=== PATIENT | female | born 1995 | race Hispanic/Latino ===

== ENCOUNTER 2017-05-28 08:05 | Outpatient (CLI) | payer OTHER ==
--- NOTE | 2017-05-28 08:56 | ULT ---
TRANSABDOMINAL TRANSVAGINAL PELVIC ULTRASOUND: INDICATION: Generalized abdominal and pelvic pain. TECHNIQUE: Molina scale, color Doppler and vascular duplex with spectral analysis was performed of the pelvis via transabdominal and transvaginal approach. FINDINGS: The uterus measures 6.5 x 3.3 x 3.6 cm. Endometrial stripe measures 3 mm. The right ovary measures 3.2 x 2 x 2.1 cm. The left ovary measures 2.3 x 1.6 x 1.6 cm. There is nor mal flow to both ovaries. No free fluid is evident. There are mild follicles seen within both ovari es. The largest is seen on the right measuring up to 1.8 cm. IMPRESSION: No acute sonographic abnormality within the pelvis. POS: [facility]
--- NOTE | 2017-05-28 09:01 | ULT ---
COMPLETE ABDOMEN ULTRASOUND: INDICATION: Abdominal pain. COMPARISON: None. FINDINGS: Visualized abdominal aorta and IVC were within normal limits. The liver demonstrated no focal hepatic lesion. The spleen is mildly enlarged measuring 13.2 cm. The gallbladder was normal-appearing. No sonographic Mercedes's sign was reported. The common bile du ct measured 4 mm. Visualized aspects of the pancreas are unremarkable. No focal renal lesion or hydronephrosis is evident. The right kidney measures 9.7 x 3.8 x 5.1 cm. T he left kidney measured 10.1 x 4.7 x 4.7 cm. IMPRESSION: Mild splenomegaly. POS: [facility]
== END 2017-05-28 08:06 | disposition home or self-care (01) ==
LOC: ULT 08:05
PROVIDERS: ATTEND Family Medicine
DX: R10.32 Left lower quadrant pain (principal); R16.1 Splenomegaly, not elsewhere classified
CPT/HCPCS: 76700; 76856

== ENCOUNTER 2017-06-25 13:16 | Emergency (ER) | payer OTHER ==
[2017-06-25 14:03] LABS: #Eosinphils 0.2 thou/uL (0.0-0.7); #Monocytes 0.5 thou/uL (0.11-0.59); %Basophils 0.5 % (0.0-1.0); %Eosinophils 2.2 % (0.0-10.0); %Lymphocytes 26.4 % (21.0-51.0); %Monocytes 6.2 % (0.0-10.0); %Neutrophils 64.7 % (42.0-75.0); Hemoglobin 14.3 g/dL (12.0-16.0); Mean Corpuscular HGB CONC 34.4 g/dL (32.0-36.0); Mean Corpuscular Hemoglobin 30.1 pg (27.0-31.0); Mean Corpuscular Volume 87.6 fl (81.0-99.0); Mean Platelet Volume 7.6 fL (7.4-10.4); Platelet Count 227 thou/uL (130-400); RBC Distribution Width 12.4 % (11.5-14.5); Red Blood Cell (RBC) Count 4.76 mill/uL (4.20-5.40); White Blood Cell (WBC) Count 7.7 thou/uL (4.8-10.8)
[2017-06-25 14:19] LABS: BHCG - Serum Negative (NEGATIVE); Pregs Control Background? CLEAR/WHITE (CLR/WHITE); Pregs Control Bar Appear? YES (CONTROL BAR)
[2017-06-25 14:27] LABS: ALT (SGPT) 13 U/L (8-55); AST (SGOT) 13 U/L (5-34); Albumin 4.4 g/dL (3.5-5.0); Alkaline Phosphatase 86 U/L (40-150); Anion Gap 11 mmol/L (10-20); BUN (Urea Nitrogen) 15 mg/dL (7.0-18.7); Bilirubin, Total 0.4 mg/dL (0.2-1.2); CK (CPK) 90 U/L (29-168); CKMB 1.1 ng/mL (0-6.6); Calc. Creatinine Clearance 0 mL/min (70-130); Calcium 9.2 mg/dL (7.8-10.44); Carbon Dioxide 25 mmol/L (22-29); Chloride 105 mmol/L (98-107); Estimated GFR-MDRD Greater than 90; Globulin 3.1 g/dL (2.4-3.5); Glucose 95 mg/dL (70-105); Lipase 29 U/L (8-78); Potassium 3.5 mmol/L (3.5-5.1); Protein, Total 7.5 g/dL (6.0-8.3); Sodium 137 mmol/L (136-145); Troponin I Less than 0.010 ng/mL (< 0.028)
[2017-06-25] MEDS ORDERED: ISOVUE-370 76%-LOCM 1 ML ONE (14:28)
--- NOTE | 2017-06-25 15:10 | CT ---
CT ANGIOGRAM OF THORACIC AND ABDOMINAL AORTA: Date: 06/25/17 HISTORY: Marfan's syndrome. Chest pain. COMPARISON: None. TECHNIQUE: CT angiogram of the thoracic abdominal aorta are performed in the axial plane. Reformatted images are submitted for interpretation. FINDINGS: CHEST CT: No mass, lymphadenopathy, or hematoma. Heart size is normal. No pericardial effusion. Dependent atele ctatic changes. No consolidation or mass. No pleural effusion or pneumothorax. Trachea and central br onchi are patent. ABDOMEN CT: Intra and extrahepatic portal vein is patent. There is appropriate arterial phase enhancement of the solid organs. Symmetric enhancement of the kidneys. No obstructive uropathy. No mesenteric mass, lymp hadenopathy, free air, or free fluid. Symmetric attenuation of the psoas muscles. Visualized alimenta ry canal is unremarkable. Ileocecal junction is normal. Normal caliber appendix. No lytic or blastic lesions in the osseous structures. CT ANGIOGRAM: Aortic root measures 3.9 x 3.8 cm. The ascending thoracic aorta, aortic arch, descending thoracic aor ta, abdominal aorta, and aortic bifurcation have an overall normal caliber. No aneurysm. No dissectio n or periaortic fat stranding. The celiac artery origin, superior mesenteric artery origin, bilateral renal artery ostia, and inferior mesenteric artery origin are unremarkable. IMPRESSION: 1. No evidence of dissection or aneurysm. 2. Prominent aortic root as detailed above. POS: [facility]
== END 2017-06-25 15:50 | disposition home or self-care (01) ==
LOC: ERS 13:16
DX: Q87.410 Marfan syndrome with aortic dilation (principal); F41.9 Anxiety disorder, unspecified
CPT/HCPCS: 71275; 80053; 82553; 83690; 84484; 84703; 85025; 93005; 96360; 96361

== ENCOUNTER 2017-09-06 19:28 | Observation (INO) | payer OTHER ==
[~2017-09-06 19:28] MED LIST: ISOVUE-370 76%-LOCM 1 ML ONE
[2017-09-06 20:17] LABS: #Lymphocytes 1.9 thou/uL (1.20-3.40); #Monocytes 0.8 thou/uL (0.11-0.59); #Neutrophils 10.7 thou/uL (1.40-6.50); %Basophils 0.3 % (0.0-1.0); %Eosinophils 0.2 % (0.0-10.0); %Lymphocytes 13.8 % (21.0-51.0); %Monocytes 5.9 % (0.0-10.0); %Neutrophils 79.8 % (42.0-75.0); Hemoglobin 14.5 g/dL (12.0-16.0); Mean Corpuscular HGB CONC 34.7 g/dL (32.0-36.0); Mean Corpuscular Hemoglobin 30.6 pg (27.0-31.0); Mean Corpuscular Volume 88.2 fl (81.0-99.0); Mean Platelet Volume 7.8 fL (7.4-10.4); Platelet Count 199 thou/uL (130-400); RBC Distribution Width 12.2 % (11.5-14.5); Red Blood Cell (RBC) Count 4.75 mill/uL (4.20-5.40); White Blood Cell (WBC) Count 13.5 thou/uL (4.8-10.8)
[2017-09-06 20:18] LABS: Bilirubin Negative (Negative); Blood, Urine Moderate (Negative); Clarity CLEAR (Clear); Glucose, Urine (Dipstick) Negative (Negative); Leukocyte Trace (Negative); Nitrite Negative (Negative); Protein, Urine (Dipstick) Negative (Neg-Trace); Specific Gravity, Urine 1.008 (1.002-1.036); Urobilinogen 0.2 mg/dL (0.2-1.0); pH, Urine 7.5 (5.0-9.0)
[2017-09-06 20:20] LABS: Bacteria/HPF None Seen HPF (None Seen); Hyaline Casts/LPF 0-3 HYALINE CAST LPF (0-3 Hyaline); RBC/HPF 21-50 HPF (0-3); Squamous Epithelial 0-3 HPF (0-3); WBC/HPF 0-3 HPF (0-3)
[2017-09-06 20:35] LABS: BHCG - Serum Negative (NEGATIVE); Pregs Control Background? CLEAR/WHITE (CLR/WHITE); Pregs Control Bar Appear? YES (CONTROL BAR)
[2017-09-06 20:43] LABS: ALT (SGPT) 19 U/L (8-55); AST (SGOT) 17 U/L (5-34); Albumin 4.5 g/dL (3.5-5.0); Alkaline Phosphatase 111 U/L (40-150); Anion Gap 12 mmol/L (10-20); BUN (Urea Nitrogen) 8 mg/dL (7.0-18.7); Bilirubin, Total 0.7 mg/dL (0.2-1.2); Calc. Creatinine Clearance 0 mL/min (70-130); Calcium 9.3 mg/dL (7.8-10.44); Carbon Dioxide 24 mmol/L (22-29); Chloride 104 mmol/L (98-107); Estimated GFR-MDRD Greater than 90; Globulin 3.2 g/dL (2.4-3.5); Glucose 107 mg/dL (70-105); Potassium 3.5 mmol/L (3.5-5.1); Protein, Total 7.7 g/dL (6.0-8.3); Sodium 136 mmol/L (136-145)
[2017-09-06 20:45] LABS: CK (CPK) 64 U/L (29-168); Lipase 29 U/L (8-78)
[2017-09-06] MEDS ORDERED: Fentanyl 100 MCG/2 ML VIAL ONE (20:53)
--- NOTE | 2017-09-06 21:49 | RAD ---
CHEST ONE VIEW: HISTORY: Chest pain. COMPARISON: None. FINDINGS: The lungs are clear. No pneumothorax or effusion. The cardiac silhouette and mediastinal contour ar e within normal limits. Low grade levoscoliosis. No acute osseous abnormality. IMPRESSION: No acute intrathoracic abnormality. POS: [facility]
--- NOTE | 2017-09-06 21:55 | CT ---
CT ABDOMEN AND PELVIS WITH CONTRAST: HISTORY: Abdominal pain. COMPARISON: None. FINDINGS: The lung bases are clear. No pericardial effusion. The aortic root is mildly prominent, although incompletely evaluated. The spleen, liver, and gallbladder are unremarkable, as well as the pancreas. The adrenal glands are normal. No hydronephrosis. No dilated loops of large or small bowel. The pancreas is visualized and is normal. Small appendico lith within the appendix. No periappendiceal fluid. No adenopathy. No free fluid in the pelvis. The acetabular silva are thin bilaterally with mild acetabular protrusio, a chronic finding. The cor tices of the spine are mildly thin. Mild superior endplate sclerosis of L3, L2, and L1. IMPRESSION: 1. No acute inflammatory process in the abdomen or pelvis. 2. Normal appendix. 3. Thin cortices with some areas of sclerosis of the lumbar vertebrae. Recommend correlation for an underlying connective tissue disorder. 4. 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 POS: [facility]
[2017-09-06] MEDS ORDERED: Lidocaine Viscous Sol 2% 15 ml UD Cup ONE (23:19)
[2017-09-06] MEDS ORDERED: Mag-Al 1200 mg/1200 mg/30 ML UDCUP ONE (23:20)
[2017-09-06] MEDS ORDERED: Pantoprazole 40 MG VIAL ONE (23:20)
[2017-09-06] MEDS ORDERED: Morphine 4 MG/ML VIAL ONE (23:43)
[2017-09-07] MEDS ORDERED: Fentanyl 100 MCG/2 ML VIAL ONE (02:19)
[2017-09-07] MEDS ORDERED: Morphine 4 MG/ML VIAL ONE (11:10)
[2017-09-07] MEDS ORDERED: Ondansetron ODT 4 MG TAB ONE (11:11)
[2017-09-07] MEDS ORDERED: Pantoprazole 40 MG VIAL ONE ×2 (11:12→11:15)
[2017-09-07] MEDS ORDERED: Ondansetron ODT 4 MG TAB PO PRN (11:17)
[2017-09-07] MEDS ORDERED: Sodium Chloride 0.9% 1,000 ML IV SCH (11:30)
[2017-09-07] MEDS ORDERED: Lidocaine 2% Viscous Solution 20 ML, Aluminum & Magnesium Hydroxide 30 ML, Donnatal Eli... SSW SCH (12:15)
[2017-09-07 12:35] LABS: Amphetamine Not Detected (NotDetected); Barbiturates Screen Not Detected (NotDetected); Benzodiazepine Screen Detected (NotDetected); Cocaine Metabolite Screen Not Detected (NotDetected); Medtox Control Line Valid? VALID (VALID); Medtox Reader # READER 1; Methadone Not Detected (NotDetected); Methamphetamine Not Detected (NotDetected); Opiate Screen Not Detected (NotDetected); Oxycodone Screen Not Detected (NotDetected); Phencyclidine (PCP) Not Detected (NotDetected); THC/Cannabinoid Screen Not Detected (NotDetected); Tricyclic Screen Not Detected (NotDetected)
--- NOTE | 2017-09-07 13:41 | ULT ---
RIGHT UPPER QUADRANT ULTRASOUND: Date: 09/07/17 HISTORY: Fever. Pain. COMPARISON: None. TECHNIQUE: Utilizing a multihertz transducer, sonographic imaging of the right upper quadrant is performed in th e longitudinal and transverse plane. FINDINGS: The head and proximal pancreatic parenchyma have a normal echotexture. Main portal vein is patent. Appropriate direction of flow. No sonographic evidence of cholelithiasis, gallbladder wall thickening, or pericholecystic fluid. Neg ative Mercedes's sign. Common bile duct diameter is 0.5 cm. Hepatic parenchyma has a normal echotexture. No hepatic masses or intrahepatic biliary dilatation. Co ntour of the hepatic margin is maintained. Right hepatic lobe measures 18.5 cm. IMPRESSION: No sonographic evidence of cholelithiasis or cholecystitis. POS: [facility]
[2017-09-07] MEDS: HYDROcodone/Acetaminophen 5/325 mg Tablet PO PRN ×2 (14:35→20:29)
--- NOTE | 2017-09-07 14:40 | HP ---
DATE OF ADMISSION: 09/07/2017 CHIEF COMPLAINT: Abdominal pain. HISTORY OF PRESENT ILLNESS: This is a 21-year-old female. She presented to the hospital wi th sudden onset of abdominal pain that started yesterday, which is progressively getting worse. Her pain, she rates is 8 on 10 intensity is not relieved with morphine, not relieved with hydrocodone. P ain started yesterday afternoon at around 4:00, which progressively got worse and patient was also henderson ving a fever of 103 and she came in yesterday, but the patient was seen this afternoon. The patient has been in the ER getting treatment with a GI cocktail which did help her pain. Pain is located in the mid epigastric area, more to the left upper quadrant. She had similar pains in the past when she was and she had been in the hospital for almost a month and she was diagnosed with a peptic ulcer at that time. She was given Protonix at the time and she continued for some time and the alondra ent has been skipping meals recently and she had a big water burger yesterday and following which her pain started. She does have some nausea, but no vomiting, no diarrhea. I did not see any blood in the stool. The patient also complains of pain in the left loin area which does radiate to the front and she had a UA which she did showed evidence of RBCs in the urine. The patient does not have any o ther known medical issues otherwise. She is otherwise in very good health. PAST MEDICAL HISTORY: None. PAST SURGICAL HISTORY: None. SOCIAL HISTORY: No history of smoking. No history of alcohol, no history of illicit drug use. FAMILY HISTORY: The patient has significant family history of Marfan syndrome runs in the family. H er dad has a gene and her son has Marfan syndrome. She also had her dad with a cardiac bypass recent ly. REVIEW OF SYSTEMS: All 12 systems reviewed with the patient thoroughly and found to be negative at t his time except the ones described in the history of present illness. Constitutional: Weight loss or gain, sense of well-being, ability to conduct usual activities, exerc ise tolerance. Skin/Breast: Rash, itching, changes in hair growth or loss, nail changes, breast lum ps, tenderness, swelling, nipple discharge. Eyes: Vision, double vision, tearing, blind spots, pain . ENT/Mouth: Headaches (location, time of onset, duration, precipitating factors), vertigo, lighthe adedness, injury. Vision, double vision, tearing, blind spots, pain, nose bleeding, colds, obstructi on, discharge, dental difficulties, gingival bleeding, dentures, neck stiffness, pain, tenderness, ma sses in thyroid or other areas. Cardiovascular: Precordial pain, substernal distress, palpitations, syncope, dyspnea on exertion, orthopnea, nocturnal paroxysmal dyspnea, edema, cyanosis, hypertension , heart murmurs, varicosities, phlebitis, claudication. Respiratory: Pain, shortness of breath, whe ezing, stridor, cough, hemoptysis, fever or night sweats. Gastrointestinal: Poor appetite, dysphagi a, indigestion, abdominal pain, heartburn, eructation, nausea, vomiting, hematemesis, jaundice, const ipation, or diarrhea, abnormal stools (robyn-colored, tarry, bloody, greasy, foul smelling), flatulenc e, hemorrhoids, recent changes in bowel habits. Genitourinary: Urgency, frequency, dysuria, nocturi a, hematuria, polyuria, oliguria, unusual (or change in) color of urine, stones, hesitancy, change in size of stream, dribbling, acute retention or incontinence, libido, potency. Musculoskeletal: Pain , swelling, redness or heat of muscles or joints, limitation of motion, muscular weakness, atrophy, c ramps. Neurologic/Psychiatric: Convulsions, paralyses, tremor, incoordination, paresthesias, diffic ulties with memory of speech, sensory or motor disturbances, or muscular coordination (ataxia, tremor ), emotional problems, anxiety, depression, previous psychiatric care, unusual perceptions, hallucina tions. Allergy/Immunologic: Skin rash, anemia, bleeding tendency, polydipsia, polyuria, intolerance to heat or cold. HOME MEDICATIONS: None. ALLERGIES: PENICILLIN. PHYSICAL EXAMINATION: VITAL SIGNS: Blood pressures are 110/88, heart rate is 80, respiration rate is 18, saturation 98%. GENERAL: The patient is seen lying in the bed supine, holding her belly. She appears to be in distr ess with pain. Otherwise, she is alert and oriented. HEENT: Atraumatic, normocephalic. PERRLA. Extraocular movement intact. Oral mucosa is pink and mo ist. CARDIOVASCULAR: S1, S2 normal. No murmurs, rubs or gallops. LUNGS: Bilateral air entry was equal. No wheezing, no crackles. ABDOMEN: Has tender in the midepigastric area in the left upper quadrant and also tenderness was not ed in the left loin area. No evidence of any guarding, no evidence of any rebound tenderness was not ed. Bowel sounds were normal. MUSCULOSKELETAL: No calf tenderness. No pedal edema. No joint tenderness, no joint swelling. SKIN: No cyanosis, no erythema, no rash, no pallor. NEUROLOGIC: Cranial nerve examination II-XII intact. No focal deficits were noted. PSYCHIATRIC: No signs of suicidal ideation and no signs of cami. No signs of depression. LABORATORY DATA: WBC 13.5, hemoglobin is 14.5, hematocrit is 41.9, platelets 199. Sodium is 136, po tassium 3.5, chloride 104, bicarbonate is 24, BUN is 8, creatinine 0.68. A CT of the abdomen and pelvis was done. No evidence of any acute cardiopulmonary process was noted. Chest x-ray was unremarkable. ASSESSMENT: 1. Acute abdominal pain. 2. Possible peptic ulcer disease. 3. Rule out gallbladder disease. 4. Acute hematuria, rule out left ureteric stone. 5. Systemic inflammatory response syndrome. PLAN: 1. Plan is to closely monitor this patient. Patient did respond to GI cocktail, so at this time, we will start the patient on Carafate 1 gram before meals and at bedtime and we will continue the Sukumar nix 40 mg IV b.i.d. We will consult GI as the patient has a previous history of peptic ulcers and th e symptoms are all related to peptic ulcer and the pain is very excruciating. We will keep the patie nt n.p.o. until the GI sees the patient. However, we will start the patient on clear liquids if she plans to get her EGD in the morning. 2. Patient has moderate to severe dehydration and she has been complaining of some headaches. We wi ll start the patient on D5NS at this time and we will closely monitor. 3. Patient has evidence of right upper quadrant pain with Mercedes sign being positive. We will do th e right upper quadrant ultrasound to rule out any evidence of gallbladder disease. 4. The patient has a left loin pain radiating to the front, associated with hematuria with more than 20 RBCs in the urine. We will plan to do a CT of the abdomen with renal protocol or we will get ult rasound of the kidneys to start with as the patient has already had a CT with IV and oral contrast dy e which was unremarkable. 5. We will consult Urology based on the findings on the ultrasound. 6. Patient has evidence of elevated white count and had a fever. We will need to rule out any evide nce of strep infection as the patient was having some sore throat, we will do a strep screen and will start the patient on levofloxacin because of the elevated white count and persistent fevers with no actual source of infection. Blood cultures have been collected. We will do a procalcitonin also. 7. Deep venous thrombosis prophylaxis, SCDs. I spent 75 minutes with this patient.
[2017-09-07] MEDS: D5 1/2 NS w/20 mEq KCL 1,000 ML IV SCH (15:57)
[2017-09-07] MEDS: Potassium Chloride 10 MEQ in Dextrose 5 % And 0.9 % NaCl 1,000 ML IV SCH (16:24)
[2017-09-07] MEDS: Sucralfate 1 GM/10 ML UDCUP PO SCH ×2 (16:24→20:29)
[2017-09-07 16:32] VITALS: BMI 23.8
[2017-09-07 18:38] LABS: Medtox Reader # READER 1; Phencyclidine (PCP) Not Detected (NotDetected); THC/Cannabinoid Screen Not Detected (NotDetected)
[2017-09-07 18:39] LABS: Amphetamine Not Detected (NotDetected); Barbiturates Screen Not Detected (NotDetected); Benzodiazepine Screen Detected (NotDetected); Cocaine Metabolite Screen Not Detected (NotDetected); Medtox Control Line Valid? VALID (VALID); Methadone Not Detected (NotDetected); Methamphetamine Not Detected (NotDetected); Opiate Screen Detected (NotDetected); Oxycodone Screen Not Detected (NotDetected); Tricyclic Screen Not Detected (NotDetected)
[2017-09-07] MEDS: Famotidine 20 MG TAB PO SCH (20:29)
[2017-09-07] MEDS: Docusate 100 MG CAP PO SCH (20:29)
[2017-09-07] MEDS ORDERED: Acetaminophen 325 MG TAB PO PRN (22:44)
[2017-09-08 05:21] LABS: Anion Gap 9 mmol/L (10-20); BUN (Urea Nitrogen) 6 mg/dL (7.0-18.7); Calc. Creatinine Clearance 146 mL/min (70-130); Calcium 8.2 mg/dL (7.8-10.44); Carbon Dioxide 25 mmol/L (22-29); Chloride 108 mmol/L (98-107); Estimated GFR-MDRD Greater than 90; Glucose 113 mg/dL (70-105); Potassium 3.7 mmol/L (3.5-5.1); Sodium 138 mmol/L (136-145)
[2017-09-08 05:53] LABS: Band 3 % (5-11); Hemoglobin 11.8 g/dL (12.0-16.0); Lymphocytes 23 % (21-51); MDiff Complete? YES; Mean Corpuscular Hemoglobin 30.2 pg (27.0-31.0); Mean Corpuscular Volume 88.8 fl (81.0-99.0); Mean Platelet Volume 8.1 fL (7.4-10.4); Monocytes 10 % (0-10); Neutrophil 64 % (42-75); PLT Morphology Comment Appears Adequate; Platelet Count 153 thou/uL (130-400); RBC Distribution Width 12.1 % (11.5-14.5); RBC Morphology Normal; Red Blood Cell (RBC) Count 3.89 mill/uL (4.20-5.40); White Blood Cell (WBC) Count 8.5 thou/uL (4.8-10.8)
[2017-09-08] MEDS: Potassium Chloride 10 MEQ in Dextrose 5 % And 0.9 % NaCl 1,000 ML IV SCH (06:17)
[2017-09-08] MEDS: Sucralfate 1 GM/10 ML UDCUP PO SCH ×2 (08:50→11:19)
[2017-09-08] MEDS: Famotidine 20 MG TAB PO SCH (08:51)
[2017-09-08] MEDS: Docusate 100 MG CAP PO SCH (08:51)
[2017-09-08] MEDS ORDERED: Enoxaparin Sodium 40 MG/0.4 ML SYRINGE SC SCH (09:00)
[2017-09-08] MEDS ORDERED: Ondansetron HCl/PF 4 MG/2 ML Vial ONE (09:48)
[2017-09-08] MEDS ORDERED: Ondansetron HCl/PF 4 MG/2 ML Vial IVP PRN (10:18)
[2017-09-08] MEDS ORDERED: Promethazine HCl 25 MG/ML VIAL IM PRN (10:18)
[2017-09-08] MEDS ORDERED: Promethazine HCl 25 MG/ML VIAL SLOW IVP PRN (10:18)
[2017-09-08 12:10] VITALS: BP 113/60; TEMP 97.7
--- NOTE | 2017-09-08 14:42 | CON ---
DATE OF CONSULTATION: 09/07/2017 REFERRING PHYSICIAN: Dr. Carlito Grimm, [facility]. REASON FOR CONSULTATION: Abdominal pain, nausea, and vomiting. HISTORY OF PRESENT ILLNESS: Ms. Shweta Ovalle is a very pleasant 21-year-old female with abdominal pain, it began yesterday. Apparently, she took her son to his doctor in [place] yesterday and on the way she ate some Whataburger. The patient developed abdominal pain last evening. The ronna n was mild to begin with. The pain was over the epigastric area predominantly and did go to the back . She had also some fever to begin with, but fever subsided. The pain got intense later and she cam e to ER this morning. The pain is sharp findings over the epigastric area and going towards the back . She had severe nausea with vomiting. She has no hematemesis or melena. The patient had an abdomi nal CAT scan and abdominal sonogram. Both were reported negative. Her liver function tests and lipa se are normal. She is being medicated with pain medication and given some GI cocktail. The GI cockt ail seems to really help her to control the pain. Her abdominal pain is markedly improved now. Quiroga mendoza, the nausea persists. Her bowel movements are regular. No history of diarrhea. The patient tel ls me she had an ulcer disease in 2014, I believe when she was with her child. Her gynecolo gist was Dr. Yoo and this was done in [facility]. She had an EGD and also renal ar jacquelyn disease. She was placed on some medication subsequently and the pain resolved. She had done we ll over the last three years . Patient does not drink alcohol. Does not smoke. She does not t tal any aspirin or any NSAID medication. She has no relevant symptoms. ALLERGIES: None. SOCIAL HISTORY: Patient does not smoke or drink alcohol. MEDICAL ILLNESSES: None. She did have peptic ulcer, 3 years ago. SURGERIES: None. MENSTRUAL HISTORY: Currently irregular. She had a control device more than week ago. She did have last cycle for 1 day on 08/16/2017. FAMILY HISTORY: Marfan syndrome. Father with coronary artery disease and bypass. HOME MEDICATIONS: None. REVIEW OF SYSTEMS: A 10-point review, Constitutional: No fever, no chills, no weight loss. Respira tory System: No history of chronic cough, hemoptysis, dyspnea. Cardiovascular System: No chest ronna n, no palpitations, no exertional dyspnea, orthopnea, or PND. : She did have some burning on urin ation to begin with, but now she has no dysuria or hematuria. Musculoskeletal/Endocrine/Hematologica l: Not known. PHYSICAL EXAMINATION: GENERAL: Patient is thin built, appears very comfortable in no distress. VITAL SIGNS: She is afebrile. Temperature 98.2 degrees Fahrenheit, pulse is 85, blood pressure is 9 8/57. HEENT: Conjunctivae clear. NECK: Supple. No adenitis or thyromegaly noted. CARDIOVASCULAR SYSTEM: First and second heart sounds normal. LUNGS: Clear to auscultation. ABDOMEN: Soft and nondistended. Abdomen is tender over the epigastric area. There is no rebound or guarding. Bowel sounds normal. EXTREMITIES: Reveal no edema. LABORATORY DATA: WBC 13,500, polymorphs 79, lymphocytes 13. Hemoglobin 14.5, hematocrit 41, platele t count 199,000. Chemistry panel: BMP is normal. Glucose is 107, calcium 9.3, bilirubin 0.7, AST 1 7, ALT 19, alkaline phosphatase is 111. Lipase is normal at 129. Urine test negative. Ab dominal sonogram showed no pathology. No gallstones seen. The abdominal CAT scan is basically negat foster again. CLINICAL IMPRESSION: Acute abdominal pain, etiology unclear. Her workup is negative. Her serum lip ase normal. She also had negative CAT scan, negative sonogram. She has history of peptic ulcer and she claims pain is somewhat like the pain she had before. PLAN: 1. Symptomatic treatment. 2. IV fluids. 3. IV PPI. 4. EGD tomorrow morning and I will make further recommendations.
[2017-09-08] MEDS ORDERED: Lidocaine 1% PF 5 ML VIAL ONE (15:04)
[2017-09-08] MEDS ORDERED: PROPOFOL 200 MG/20 ML VIAL ONE (15:04)
--- NOTE | 2017-09-08 17:10 | OP ---
DATE OF PROCEDURE: 09/08/2017 SURGEON: Dimitri Padron M.D. OPERATIVE PROCEDURE: Esophagogastroduodenoscopy with biopsy. PREOPERATIVE DIAGNOSES: Abdominal pain, nausea, vomiting. POSTOPERATIVE DIAGNOSES: 1. Grade II esophagitis. 2. Small ulcer in the duodenal bulb, mild duodenitis. OPERATIVE PROCEDURE IN DETAIL: The patient was placed on her left lateral position and was given sed ation by Anesthesia Department. A Pentax video gastroscope under direct vision was passed down the o ropharynx, past the GE junction, into the stomach and subsequently descending duodenum. The mucosa a ppears normal over the upper two-thirds. Over the distal esophagus, the patient had hyperemia and ed dominique. No ulcerations seen. Retroflexion failed to show any pathology in the fundus and cardia. The gastric body and gastric antrum, no pathology seen. The duodenal bulb showed shows small ulceration, duodenitis. The descending duodenum, no pathology. Biopsy of the gastric antrum and gastric body. The stomach was decompressed and the scope was removed. RECOMMENDATIONS: 1. Discontinue n.p.o. 2. Diet: As tolerated. 3. Protonix 40 once a day.
--- NOTE | 2017-09-11 15:09 | EKG ---
Test Reason : Blood Pressure : / mmHG Vent. Rate : 111 BPM Atrial Rate : 111 BPM P-R Int : 176 ms QRS Dur : 096 ms QT Int : 330 ms P-R-T Axes : 045 036 038 degrees QTc Int : 448 ms Sinus tachycardia Possible Left atrial enlargement Incomplete right bundle branch block Borderline ECG Confirmed by ROMAN DE LA ROSA, DAVON ([id number]), editorial writer CARO VOGT ([id number]) on 09/11/2017 3:09:24 PM Referred By: Confirmed By:DAVON OWENS MD
== END 2017-09-08 14:56 | disposition home or self-care (01) ==
LOC: ERS 19:28 → ERHOLD 09-07 00:15 → 2SW 09-07 13:35
PROVIDERS: ADMIT Internal Medicine; ATTEND Internal Medicine
PROC: 0DB78ZX Excision of Stomach, Pylorus, Via Natural or Artificial Opening Endoscopic, Diagnostic (ICD-10-PCS; principal; 2017-09-08)
DX: K20.9 Esophagitis, unspecified (principal); K26.9 Duodenal ulcer, unspecified as acute or chronic, without hemorrhage or perforation; K29.80 Duodenitis without bleeding; E86.0 Dehydration; R31.9 Hematuria, unspecified; R65.10 Systemic inflammatory response syndrome (SIRS) of non-infectious origin without acute organ dysfunction; Z88.0 Allergy status to penicillin
CPT/HCPCS: 36415; 71045; 74177; 76705; 80048; 80053; 80306; 81003; 81015; 82550; 83605; 83690; 84703; 85025; 87040; 87081; 87430; 88305; 88312; 93005; 96361; 96365; 96375; 96376; C9113; G0378; J1956; J2001; J2270; J2405; J2704; J3010; J3480; J7042; Q0162

== ENCOUNTER 2021-03-12 15:20 | Emergency (ER) | payer OTHER ==
[~2021-03-12 15:20] MED LIST changes: -ISOVUE-370 76%-LOCM 1 ML ONE; +Iopamidol-370 76% 500 ML 1 ML ONE
[2021-03-12 16:30] LABS: #Eosinphils 0.3 thou/uL (0.0-0.7); #Lymphocytes 2.7 thou/uL (1.20-3.40); #Monocytes 0.5 thou/uL (0.11-0.59); %Basophils 0.4 % (0.0-1.0); %Eosinophils 3.1 % (0.0-10.0); %Lymphocytes 31.6 % (21.0-51.0); %Monocytes 6.2 % (0.0-10.0); %Neutrophils 58.7 % (42.0-75.0); Hemoglobin 13.7 g/dL (12.0-16.0); Mean Corpuscular HGB CONC 34.3 g/dL (32.0-36.0); Mean Corpuscular Hemoglobin 28.5 pg (27.0-31.0); Mean Corpuscular Volume 83.1 fL (78.0-98.0); Mean Platelet Volume 7.7 fL (7.4-10.4); Platelet Count 320 thou/uL (130-400); RBC Distribution Width 14.6 % (11.5-14.5); Red Blood Cell (RBC) Count 4.79 mill/uL (4.20-5.40); White Blood Cell (WBC) Count 8.5 thou/uL (4.8-10.8)
[2021-03-12 16:36] LABS: BHCG - Serum Negative (NEGATIVE); Pregs Control Background? CLEAR/WHITE (CLR/WHITE); Pregs Control Bar Appear? YES (CONTROL BAR)
[2021-03-12] MEDS ORDERED: niCARdipine 20MG In NaCl 20 MG/200 ML BAG ONE (16:45)
[2021-03-12] MEDS ORDERED: Fentanyl 100 MCG/2 ML VIAL ONE ×2 (16:45→17:54)
[2021-03-12] MEDS ORDERED: Esmolol 2,500 MG/250 ML 250 ML ONE (16:47)
[2021-03-12 16:53] LABS: ALT (SGPT) 18 U/L (8-55); AST (SGOT) 15 U/L (5-34); Albumin 4.4 g/dL (3.5-5.0); Alkaline Phosphatase 143 U/L (40-110); Anion Gap 15 mmol/L (10-20); BUN (Urea Nitrogen) 10 mg/dL (7.0-18.7); Bilirubin, Total 0.3 mg/dL (0.2-1.2); Calc. Creatinine Clearance 0 mL/min (70-130); Calcium 9.5 mg/dL (7.8-10.44); Carbon Dioxide 25 mmol/L (22-29); Chloride 104 mmol/L (98-107); Glucose 74 mg/dL (70-105); Protein, Total 8.4 g/dL (6.0-8.3); Sodium 140 mmol/L (136-145)
[2021-03-12 19:11] LABS: SARS-CoV-2 NAA Rapid Test Not Detected (NotDetected)
== END 2021-03-12 19:14 | disposition short-term general hospital (02) ==
LOC: ERS 15:20
DX: I71.01 Dissection of thoracic aorta (principal); Z20.822 Contact with and (suspected) exposure to COVID-19
CPT/HCPCS: 36415; 71045; 71275; 74174; 80053; 83880; 84484; 84703; 85025; 93005; 96374; 96375; 96376; J3010; Q9967; U0002

== ENCOUNTER 2021-03-22 10:22 | Emergency (ER) | payer OTHER ==
[2021-03-22] MEDS ORDERED: niCARdipine 20MG In NaCl 20 MG/200 ML BAG ONE (10:44)
[2021-03-22] MEDS ORDERED: Fentanyl 100 MCG/2 ML VIAL ONE ×4 (10:58→13:34)
[2021-03-22] MEDS ORDERED: Ondansetron PF 4 MG/2 ML Vial ONE ×2 (11:15→12:08)
[2021-03-22 11:19] LABS: #Basophils 0.1 thou/uL (0.0-0.2); #Eosinphils 0.2 thou/uL (0.0-0.7); #Lymphocytes 2.5 thou/uL (1.20-3.40); #Monocytes 0.4 thou/uL (0.11-0.59); #Neutrophils 4.8 thou/uL (1.40-6.50); %Basophils 0.7 % (0.0-1.0); %Eosinophils 2.2 % (0.0-10.0); %Lymphocytes 31.9 % (21.0-51.0); %Monocytes 5.2 % (0.0-10.0); %Neutrophils 60.1 % (42.0-75.0); Hemoglobin 12.9 g/dL (12.0-16.0); Mean Corpuscular HGB CONC 34.4 g/dL (32.0-36.0); Mean Corpuscular Hemoglobin 28.8 pg (27.0-31.0); Mean Corpuscular Volume 83.5 fL (78.0-98.0); Mean Platelet Volume 7.9 fL (7.4-10.4); Platelet Count 213 thou/uL (130-400); White Blood Cell (WBC) Count 7.9 thou/uL (4.8-10.8)
[2021-03-22 11:43] LABS: ALT (SGPT) 15 U/L (8-55); AST (SGOT) 20 U/L (5-34); Albumin 4.2 g/dL (3.5-5.0); Alkaline Phosphatase 113 U/L (40-110); Anion Gap 13 mmol/L (10-20); BUN (Urea Nitrogen) 12 mg/dL (7.0-18.7); Bilirubin, Total 0.4 mg/dL (0.2-1.2); Calc. Creatinine Clearance 0 mL/min (70-130); Calcium 9.4 mg/dL (7.8-10.44); Carbon Dioxide 25 mmol/L (22-29); Chloride 105 mmol/L (98-107); Globulin 4.1 g/dL (2.4-3.5); Glucose 96 mg/dL (70-105); Lipase 55 U/L (8-78); Potassium 4.7 mmol/L (3.5-5.1); Protein, Total 8.3 g/dL (6.0-8.3); Sodium 138 mmol/L (136-145)
== END 2021-03-22 13:44 | disposition short-term general hospital (02) ==
LOC: ERS 10:22
DX: I71.01 Dissection of thoracic aorta (principal)
CPT/HCPCS: 36415; 71275; 74174; 80053; 83690; 83880; 84484; 85025; 93005; 94760; 96365; 96375; 96376; J2405; J3010; Q9967

== ENCOUNTER 2021-05-09 10:09 | Outpatient (CLI) | payer OTHER | END 2021-05-09 10:10 | disposition home or self-care (01) | LOC: BICRAD 10:09 | PROVIDERS: ATTEND Nurse Practitioner Family | DX: M54.2 Cervicalgia (principal); M43.9 Deforming dorsopathy, unspecified; M47.812 Spondylosis without myelopathy or radiculopathy, cervical region | CPT/HCPCS: 36415; 72040; 80053; 85025 ==

== ENCOUNTER 2021-09-18 11:05 | Outpatient (CLI) | payer OTHER | END 2021-09-18 11:06 | disposition home or self-care (01) | LOC: BICULT 11:05 | PROVIDERS: ATTEND Family Medicine | DX: R10.9 Unspecified abdominal pain (principal) | CPT/HCPCS: 76705 ==

== ENCOUNTER 2022-06-19 11:14 | Outpatient (CLI) | payer OTHER | END 2022-06-19 11:15 | disposition home or self-care (01) | LOC: BICRAD 11:14 | PROVIDERS: ATTEND Family Medicine | DX: I71.012 Dissection of descending thoracic aorta (principal); R06.02 Shortness of breath | CPT/HCPCS: 71046 ==

== ENCOUNTER 2022-06-27 18:12 | Emergency (ER) | payer OTHER ==
[2022-06-27] MEDS ORDERED: Fentanyl 100 MCG/2 ML VIAL ONE (19:43)
[2022-06-27] MEDS ORDERED: LORazepam 2 MG/ML SYR.(CARPUJECT) ONE (19:43)
[2022-06-27] MEDS ORDERED: Ketorolac Tromethamine 30 MG/ML VIAL ONE (19:44)
[2022-06-27] MEDS ORDERED: Ondansetron PF 4 MG/2 ML Vial ONE (19:44)
[2022-06-27 20:11] LABS: BHCG - Serum Negative (NEGATIVE); Pregs Control Background? CLEAR/WHITE (CLR/WHITE); Pregs Control Bar Appear? YES (CONTROL BAR)
[2022-06-27 20:13] LABS: #Eosinphils 0.2 thou/uL (0.0-0.7); #Lymphocytes 2.5 thou/uL (1.20-3.40); #Monocytes 0.7 thou/uL (0.11-0.59); #Neutrophils 6.4 thou/uL (1.40-6.50); %Basophils 0.3 % (0.0-1.0); %Eosinophils 1.9 % (0.0-10.0); %Lymphocytes 25.7 % (21.0-51.0); %Monocytes 7.2 % (0.0-10.0); Hemoglobin 10.7 g/dL (12.0-16.0); Mean Corpuscular HGB CONC 32.7 g/dL (32.0-36.0); Mean Corpuscular Volume 79.6 fl (78.0-98.0); Mean Platelet Volume 8.4 fL (7.4-10.4); Platelet Count 278 10x3/uL (130-400); RBC Distribution Width 14.9 % (11.5-14.5); Red Blood Cell (RBC) Count 4.11 mill/uL (4.20-5.40); White Blood Cell (WBC) Count 9.8 10x3/uL (4.8-10.8)
[2022-06-27 21:07] LABS: ALT (SGPT) 7 U/L (8-55); AST (SGOT) 11 U/L (5-34); Albumin 4.4 g/dL (3.5-5.0); Alkaline Phosphatase 70 U/L (40-110); Anion Gap 11 mmol/L (10-20); BUN (Urea Nitrogen) 15 mg/dL (7.0-18.7); Bilirubin, Total 0.3 mg/dL (0.2-1.2); CK (CPK) 29 U/L (29-168); Calc. Creatinine Clearance 0 mL/min (70-130); Carbon Dioxide 21 mmol/L (22-29); Chloride 104 mmol/L (98-107); Estimated GFR 128; Globulin 3.3 g/dL (2.4-3.5); Glucose 104 mg/dL (70-105); Lipase 41 U/L (8-78); Potassium 3.7 mmol/L (3.5-5.1); Protein, Total 7.7 g/dL (6.0-8.3); Sodium 132 mmol/L (136-145)
[2022-06-27] MEDS ORDERED: Esmolol 2,500 MG/250 ML 250 ML IVPB SCH (23:00)
[2022-06-27 23:26] LABS: INR-International Normal Ratio 1.1; PTT 32.2 sec (22.9-36.1); Prothrombin Time 14.1 sec (12.0-14.7)
== END 2022-06-27 23:42 | disposition short-term general hospital (02) ==
LOC: ERS 18:12
DX: I71.019 Dissection of thoracic aorta, unspecified (principal)
CPT/HCPCS: 36415; 70498; 71275; 74174; 80053; 82550; 83690; 84484; 84703; 85025; 85610; 85730; 86850; 86900; 86901; 93005; 96365; 96375; J1885; J2060; J2405; J3010; Q9967

== ENCOUNTER 2022-10-10 15:24 | Emergency (ER) | payer OTHER ==
[2022-10-10 16:09] LABS: #Eosinphils 0.1 thou/uL (0.0-0.7); #Monocytes 0.5 thou/uL (0.11-0.59); #Neutrophils 4.6 thou/uL (1.40-6.50); %Basophils 0.3 % (0.0-1.0); %Eosinophils 1.8 % (0.0-10.0); %Lymphocytes 25.8 % (21.0-51.0); %Monocytes 6.6 % (0.0-10.0); %Neutrophils 65.2 % (42.0-75.0); Hemoglobin 13.2 g/dL (12.0-16.0); Mean Corpuscular HGB CONC 33.2 g/dL (32.0-36.0); Mean Corpuscular Hemoglobin 28.4 pg (27.0-31.0); Mean Corpuscular Volume 85.8 fl (78.0-98.0); Mean Platelet Volume 10.2 fL (7.4-10.4); Platelet Count 237 10x3/uL (130-400); RBC Distribution Width 14.8 % (11.5-14.5); Red Blood Cell (RBC) Count 4.64 mill/uL (4.20-5.40); White Blood Cell (WBC) Count 7.1 10x3/uL (4.8-10.8)
[2022-10-10 16:32] LABS: ALT (SGPT) 7 U/L (8-55); AST (SGOT) 9 U/L (5-34); Albumin 4.3 g/dL (3.5-5.0); Alkaline Phosphatase 77 U/L (40-110); Anion Gap 14 mmol/L (10-20); BUN (Urea Nitrogen) 9 mg/dL (7.0-18.7); Bilirubin, Total 0.2 mg/dL (0.2-1.2); Calc. Creatinine Clearance 0 mL/min (70-130); Calcium 9.1 mg/dL (7.8-10.44); Carbon Dioxide 22 mmol/L (22-29); Chloride 105 mmol/L (98-107); Estimated GFR 124; Globulin 3.3 g/dL (2.4-3.5); Glucose 97 mg/dL (70-105); Potassium 3.4 mmol/L (3.5-5.1); Protein, Total 7.6 g/dL (6.0-8.3); Sodium 138 mmol/L (136-145)
[2022-10-10 16:47] LABS: Prothrombin Time 13.4 sec (12.0-14.7)
[2022-10-10 17:30] LABS: Bacteria/HPF 1+ HPF (None Seen); Bilirubin Negative (Negative); Blood, Urine 3+ (Negative); CAUTI Indications for Culture Acute Hematuria; Clarity Clear (Clear); Glucose, Urine (Dipstick) Normal (Negative); Ketone, Urine Negative (Negative); Leukocyte 25 Leu/uL (Negative); Nitrite Negative (Negative); Protein, Urine (Dipstick) 30 mg/dL (Neg-Trace); RBC/HPF 21-50 HPF (0-3); Specific Gravity, Urine 1.005 (1.002-1.036); Squamous Epithelial 0-3 HPF (0-3); Urobilinogen Normal mg/dL (Less than 2); WBC/HPF 0-3 HPF (0-3); pH, Urine 6.5 (5.0-9.0)
[2022-10-10 17:31] LABS: Pregnancy Test - Urine (BHCG) Negative (Negative); Pregu Control Background? CLEAR/WHITE (CLR/WHITE); Pregu Control Bar Appear? YES (CONTROL BAR); Specific Gravity 1.005 (1.002-1.036); Urine Culture Reflex No No
== END 2022-10-10 17:51 | disposition home or self-care (01) ==
LOC: ERS 15:24
DX: N93.9 Abnormal uterine and vaginal bleeding, unspecified (principal)
CPT/HCPCS: 36415; 80053; 81001; 81025; 84702; 85025; 85610; 85730; 86850; 86900; 86901; 99284

== ENCOUNTER 2022-10-31 23:33 | Emergency (ER) | payer OTHER, SELFPAY ==
[2022-10-31] MEDS ORDERED: methylPREDNISolone Sod Succ/PF 125 MG/2 ML VIAL ONE (23:59)
[2022-10-31] MEDS ORDERED: Famotidine/PF 20 mg/2ml Vial ONE (23:59)
[2022-10-31] MEDS ORDERED: diphenhydrAMINE 50 MG/ML VIAL ONE (23:59)
== END 2022-11-01 01:42 | disposition home or self-care (01) ==
LOC: ERS 23:33
DX: T63.481A Toxic effect of venom of other arthropod, accidental (unintentional), initial encounter (principal); T78.40XA Allergy, unspecified, initial encounter
CPT/HCPCS: 96374; 96375; J1200; J2930; S0028

== ENCOUNTER 2022-12-15 08:17 | Outpatient (CLI) | payer BC, OTHER ==
[2022-12-15] MEDS ORDERED: Iopamidol 370 76% 100 ML VIAL ONE (09:27)
== END 2022-12-15 08:18 | disposition home or self-care (01) ==
LOC: CT 08:17
PROVIDERS: ATTEND Nurse Practitioner Family
DX: R10.9 Unspecified abdominal pain (principal)
CPT/HCPCS: 74178

== ENCOUNTER 2023-01-29 14:44 | Emergency (ER) | payer BC, OTHER ==
[~2023-01-29 14:44] MED LIST changes: -Iopamidol-370 76% 500 ML 1 ML ONE; +Iopamidol-370 76% 500 ML MDV (1 ML CHARGE) ONE
[2023-01-29 15:38] LABS: #Eosinphils 0.1 thou/uL (0.0-0.7); #Monocytes 0.5 thou/uL (0.11-0.59); #Neutrophils 5.7 thou/uL (1.40-6.50); %Basophils 0.2 % (0.0-1.0); %Lymphocytes 26.4 % (21.0-51.0); %Monocytes 5.9 % (0.0-10.0); %Neutrophils 66.3 % (42.0-75.0); Hematocrit 38.9 % (36.0-47.0); Hemoglobin 13.1 g/dL (12.0-16.0); Mean Corpuscular HGB CONC 33.7 g/dL (32.0-36.0); Mean Corpuscular Hemoglobin 29.2 pg (27.0-31.0); Mean Corpuscular Volume 86.6 fl (78.0-98.0); Mean Platelet Volume 10.7 fL (7.4-10.4); Platelet Count 211 10x3/uL (130-400); RBC Distribution Width 13.9 % (11.5-14.5); Red Blood Cell (RBC) Count 4.49 mill/uL (4.20-5.40); White Blood Cell (WBC) Count 8.7 10x3/uL (4.8-10.8)
[2023-01-29 15:51] LABS: INR-International Normal Ratio 1.1; PTT 32.3 sec (22.9-36.1); Prothrombin Time 14.6 sec (12.0-14.7)
[2023-01-29 16:09] LABS: Troponin I Less than 0.010 ng/mL (< 0.028)
[2023-01-29 16:10] LABS: ALT (SGPT) 8 U/L (8-55); AST (SGOT) 14 U/L (5-34); Albumin 4.6 g/dL (3.5-5.0); Alkaline Phosphatase 73 U/L (40-110); Anion Gap 12 mmol/L (10-20); BUN (Urea Nitrogen) 9 mg/dL (7.0-18.7); Bilirubin, Total 0.4 mg/dL (0.2-1.2); Calc. Creatinine Clearance 0 mL/min (70-130); Calcium 9.7 mg/dL (7.8-10.44); Carbon Dioxide 24 mmol/L (22-29); Chloride 106 mmol/L (98-107); Estimated GFR 122; Globulin 3.7 g/dL (2.4-3.5); Glucose 83 mg/dL (70-105); Lipase 28 U/L (8-78); Potassium 3.6 mmol/L (3.5-5.1); Protein, Total 8.3 g/dL (6.0-8.3); Sodium 138 mmol/L (136-145)
[2023-01-29] MEDS ORDERED: Morphine 4 MG/ML VIAL ONE ×2 (16:15→16:55)
[2023-01-29] MEDS ORDERED: Labetalol HCl 100 MG/20 ML VIAL ONE (16:15)
[2023-01-29 18:27] LABS: Troponin I Less than 0.010 ng/mL (< 0.028)
== END 2023-01-29 19:12 | disposition home or self-care (01) ==
LOC: ERS 14:44
DX: R07.9 Chest pain, unspecified (principal)
CPT/HCPCS: 36415; 71045; 71275; 74174; 80053; 83690; 84484; 85025; 85610; 85730; 93005; 94760; 96374; 96375; 96376; J2270; Q9967

== ENCOUNTER 2023-03-11 16:53 | Emergency (ER) | payer BC, OTHER ==
[2023-03-11] MEDS ORDERED: Morphine 2 MG/ML VIAL ONE ×2 (18:03→18:45)
[2023-03-11 18:05] LABS: #Eosinphils 0.2 thou/uL (0.0-0.7); #Monocytes 0.5 thou/uL (0.11-0.59); #Neutrophils 6.2 thou/uL (1.40-6.50); %Basophils 0.5 % (0.0-1.0); %Eosinophils 2.2 % (0.0-10.0); %Lymphocytes 20.4 % (21.0-51.0); %Monocytes 5.9 % (0.0-10.0); %Neutrophils 70.7 % (42.0-75.0); Hematocrit 36.8 % (36.0-47.0); Hemoglobin 12.3 g/dL (12.0-16.0); Mean Corpuscular HGB CONC 33.4 g/dL (32.0-36.0); Mean Corpuscular Hemoglobin 29.2 pg (27.0-31.0); Mean Corpuscular Volume 87.4 fl (78.0-98.0); Mean Platelet Volume 9.7 fL (7.4-10.4); Platelet Count 384 10x3/uL (130-400); RBC Distribution Width 13.2 % (11.5-14.5); Red Blood Cell (RBC) Count 4.21 mill/uL (4.20-5.40); White Blood Cell (WBC) Count 8.7 10x3/uL (4.8-10.8)
[2023-03-11 18:20] LABS: PTT 35.1 sec (22.9-36.1); Prothrombin Time 13.9 sec (12.0-14.7)
[2023-03-11 18:28] LABS: ALT (SGPT) 8 U/L (8-55); AST (SGOT) 11 U/L (5-34); Albumin 4.8 g/dL (3.5-5.0); Alkaline Phosphatase 114 U/L (40-110); Anion Gap 16 mmol/L (10-20); BUN (Urea Nitrogen) 7 mg/dL (7.0-18.7); Bilirubin, Total 0.3 mg/dL (0.2-1.2); Calc. Creatinine Clearance 0 mL/min (70-130); Calcium 9.3 mg/dL (7.8-10.44); Carbon Dioxide 22 mmol/L (22-29); Chloride 104 mmol/L (98-107); Estimated GFR 122; Globulin 3.8 g/dL (2.4-3.5); Glucose 98 mg/dL (70-105); Potassium 4.1 mmol/L (3.5-5.1); Protein, Total 8.6 g/dL (6.0-8.3); Sodium 138 mmol/L (136-145)
[2023-03-11] MEDS ORDERED: diphenhydrAMINE 50 MG/ML VIAL ONE (18:58)
[2023-03-12 06:17] LABS: Bacteria/HPF None Seen HPF (None Seen); Bilirubin Negative (Negative); Blood, Urine Trace (Negative); Clarity Clear (Clear); Glucose, Urine (Dipstick) Normal (Negative); Ketone, Urine Negative (Negative); Leukocyte Negative Leu/uL (Negative); Nitrite Negative (Negative); Protein, Urine (Dipstick) Negative (Neg-Trace); RBC/HPF 0-3 HPF (0-3); Squamous Epithelial 0-3 HPF (0-3); Urobilinogen Normal mg/dL (Less than 2); WBC/HPF 0-3 HPF (0-3)
[2023-03-12 06:23] LABS: Specific Gravity, Urine 1.053 (1.002-1.036)
== END 2023-03-11 21:22 | disposition home or self-care (01) ==
LOC: ERS 16:53
DX: M54.50 Low back pain, unspecified (principal); Q87.40 Marfan syndrome, unspecified
CPT/HCPCS: 71275; 74174; 80053; 81001; 85025; 85610; 85730; 86140; 86850; 86900; 86901; 93005; 96374; 96375; 96376; J1200; J2272; Q9967

== ENCOUNTER 2023-11-18 11:48 | Outpatient (CLI) | payer BC, OTHER | END 2023-11-18 11:49 | disposition home or self-care (01) | LOC: BICRAD 11:48 | PROVIDERS: ATTEND Family Medicine | DX: M54.50 Low back pain, unspecified (principal); M54.6 Pain in thoracic spine; M41.9 Scoliosis, unspecified | CPT/HCPCS: 72072; 72100 ==